=== PATIENT | male | born 1955 | race Caucasian/White ===

== ENCOUNTER 2016-11-08 09:09 | Observation (INO) | payer BC ==
[2016-11-08 09:41] LABS: Hematocrit 43 % (42-52); Hemoglobin 14.8 g/dl (14.0-18.0); Mean Corpuscular HGB Conc 34 g/dl (31-36); Mean Corpuscular Hemoglobin 30 pg (27-31); Mean Corpuscular Volume 88 fL (80-94); Mean Platelet Volume 8 um3 (7.4-10.4); Red Cell Distribution Width 13 % (10.5-15)
[2016-11-08 09:59] LABS: Troponin I 0.01 ng/mL (<0.04)
[2016-11-08 10:01] LABS: Albumin 4.1 g/dL (3.2-5.2); BUN/Creatinine Ratio 19.6 (8-20); Calcium 9.2 mg/dL (8.6-10.3); EGFR African American 107.9 (>60); EGFR Non-African American 83.9 (>60); Globulin 2.6 g/dL (2-4); Total Bilirubin 0.4 mg/dL (0.2-1.0); Total Protein 6.7 g/dL (6.4-8.9)
[2016-11-08 10:34] LABS: TSH (Thyroid Stimulating Horm) 1.81 mcIU/mL (0.34-5.60)
--- NOTE | 2016-11-08 10:41 | ED ---
Colette Camp SooYoung, scribed for Abdoulaye Gonzales MD on 11/08/16 at 0915 . 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 Pt was driving to work when he suddenly felt dizzy and pulled over. Dizziness described as lightheadedness and room-spinning. Associated sx: nausea/dry heaving, heavy breathing, fast palpitations. Pt states his vision seems a little "fuzzy." Pt had his usual large cup of coffee this AM. Per EMS, Zofran during ambulance ride seemed to gradually alleviate sx. - History Of Current Complaint Stated Complaint: DIZZINESS Hx Obtained From: Patient, EMS Onset/Duration: Still Present, Suddenly Timing: Constant Severity Initially: Moderate Severity Currently: Moderate Character: Room Spinning, Lightheaded, Dizzy Associated Signs And Symptoms: Positive: Nausea, Palpitations, Visual Changes - Allergies/Home Medications Allergies/Adverse Reactions: Allergies Allergy/AdvReac Type Severity Reaction Status Date / Time Penicillins [PCN] Allergy Unknown Verified 11/08/16 09:15 Reaction Details PMH/Surg Hx/FS Hx/Imm Hx Previously Healthy: Yes Sensory History: Denies: Hx Legally Blind Opthamlomology History: Denies: Hx Legally Blind Review of Systems Positive: Other - pos: vision changes "fuzzy" Positive: Palpitations Positive: Other - pos: "heavy breathing" Positive: Nausea Neurological: Other - POS: DIZZY All Other Systems Reviewed And Are Negative: Yes Physical Exam Triage Information Reviewed: Yes Vital Signs On Initial Exam: Initial Vitals Temp Pulse Resp BP Pulse Ox 99.2 F 73 14 161/90 95 11/08/16 09:14 11/08/16 09:14 11/08/16 09:14 11/08/16 09:14 11/08/16 09:14 Vital Signs Reviewed: Yes Appearance: Positive: Well-Appearing, No Pain Distress Skin: Positive: Warm, Skin Color Reflects Adequate Perfusion, Dry Head/Face: Positive: Normal Head/Face Inspection Eyes: Positive: Other: - POS: NYSTAGMUS WITH A FAST COMPONENT TO THE R THAT FATIGUED. ENT: Positive: Normal ENT inspection Neck: Positive: Supple, Nontender Respiratory/Lung Sounds: Positive: Clear to Auscultation, Breath Sounds Present Cardiovascular: Positive: RRR Abdomen Description: Positive: Nontender, Soft Bowel Sounds: Positive: Present Musculoskeletal: Positive: Normal Neurological: Positive: Normal Psychiatric: Positive: Normal, Affect/Mood Appropriate Diagnostics - Vital Signs Vital Signs Temp Pulse Resp BP Pulse Ox 11/08/16 09:14 99.2 F 73 14 161/90 95 - Laboratory Lab Results: Lab Results 11/08/16 11/08/16 11/08/16 Range/Units 09:35 09:35 09:35 WBC 10.0 (3.5-10.8) 10^3/ul RBC 4.90 (4.0-5.4) 10^6/ul Hgb 14.8 (14.0-18.0) g/dl Hct 43 (42-52) % MCV 88 (80-94) fL MCH 30 (27-31) pg MCHC 34 (31-36) g/dl RDW 13 (10.5-15) % Plt Count 242 (150-450) 10^3/ul MPV 8 (7.4-10.4) um3 Neut % (Auto) 67.3 (38-83) % Lymph % (Auto) 20.9 L (25-47) % [place] % (Auto) 9.7 H (1-9) % Eos % (Auto) 0.8 (0-6) % Baso % (Auto) 1.3 (0-2) % Absolute Neuts (auto) 6.7 (1.5-7.7) 10^3/ul Absolute Lymphs (auto) 2.1 (1.0-4.8) 10^3/ul Absolute Monos (auto) 1.0 H (0-0.8) 10^3/ul Absolute Eos (auto) 0.1 (0-0.6) 10^3/ul Absolute Basos (auto) 0.1 (0-0.2) 10^3/ul Absolute Nucleated RBC 0 10^3/ul Nucleated RBC % 0 INR (Anticoag Therapy) (0.89-1.11) Sodium 136 (133-145) mmol/L Potassium 4.0 (3.5-5.0) mmol/L Chloride 107 (101-111) mmol/L Carbon Dioxide 23 (22-32) mmol/L Anion Gap 6 (2-11) mmol/L BUN 18 (6-24) mg/dL Creatinine 0.92 (0.67-1.17) mg/dL Est GFR ( Amer) 107.9 (>60) Est GFR (Non-Af Amer) 83.9 (>60) BUN/Creatinine Ratio 19.6 (8-20) Glucose 117 H (70-100) mg/dL Lactic Acid 1.4 (0.5-2.0) mmol/L Calcium 9.2 (8.6-10.3) mg/dL Magnesium 2.0 (1.9-2.7) mg/dL Total Bilirubin 0.40 (0.2-1.0) mg/dL AST 14 (13-39) U/L ALT 16 (7-52) U/L Alkaline Phosphatase 54 (34-104) U/L Troponin I 0.01 (<0.04) ng/mL Total Protein 6.7 (6.4-8.9) g/dL Albumin 4.1 (3.2-5.2) g/dL Globulin 2.6 (2-4) g/dL Albumin/Globulin Ratio 1.6 (1-3) TSH Pending 11/08/16 Range/Units 09:35 WBC (3.5-10.8) 10^3/ul RBC (4.0-5.4) 10^6/ul Hgb (14.0-18.0) g/dl Hct (42-52) % MCV (80-94) fL MCH (27-31) pg MCHC (31-36) g/dl RDW (10.5-15) % Plt Count (150-450) 10^3/ul MPV (7.4-10.4) um3 Neut % (Auto) (38-83) % Lymph % (Auto) (25-47) % [place] % (Auto) (1-9) % Eos % (Auto) (0-6) % Baso % (Auto) (0-2) % Absolute Neuts (auto) (1.5-7.7) 10^3/ul Absolute Lymphs (auto) (1.0-4.8) 10^3/ul Absolute Monos (auto) (0-0.8) 10^3/ul Absolute Eos (auto) (0-0.6) 10^3/ul Absolute Basos (auto) (0-0.2) 10^3/ul Absolute Nucleated RBC 10^3/ul Nucleated RBC % INR (Anticoag Therapy) 0.81 L (0.89-1.11) Sodium (133-145) mmol/L Potassium (3.5-5.0) mmol/L Chloride (101-111) mmol/L Carbon Dioxide (22-32) mmol/L Anion Gap (2-11) mmol/L BUN (6-24) mg/dL Creatinine (0.67-1.17) mg/dL Est GFR ( Amer) (>60) Est GFR (Non-Af Amer) (>60) BUN/Creatinine Ratio (8-20) Glucose (70-100) mg/dL Lactic Acid (0.5-2.0) mmol/L Calcium (8.6-10.3) mg/dL Magnesium (1.9-2.7) mg/dL Total Bilirubin (0.2-1.0) mg/dL AST (13-39) U/L ALT (7-52) U/L Alkaline Phosphatase (34-104) U/L Troponin I (<0.04) ng/mL Total Protein (6.4-8.9) g/dL Albumin (3.2-5.2) g/dL Globulin (2-4) g/dL Albumin/Globulin Ratio (1-3) TSH Result Diagrams: 11/08/16 09:35 11/08/16 09:35 Lab Statement: Any lab studies that have been ordered have been reviewed, and results considered in the medical decision making process. - EKG 1 EKG Rhythm: Sinus Rhythm Ectopy: PVCs Dizzy Course/Dx - Course Course Of Treatment: Mr. Perkins presented after a near syncopal episode while driving. He felt 'lightheaded', 'the world was moving' and his heart was ' racing'. It came on suddenly and he pulled over and called EMS. He gradually began to improve. EMS found him in bigeminy and he presents with frequent PVC' s. His W/U is fine here and his exam normal aside from some mild nystagmus that fatigues. I am concerned for a dysrythmia and he will be admitted to the hospitalist service. - Diagnoses Provider Diagnoses: Near syncope - Critical Care Time Critical Care Time: 30-74 min Discharge - Discharge Plan Condition: Stable Disposition: ADMITTED TO [facility] The documentation as recorded by the Colette pizarro SooYoung accurately reflects the service I personally performed and the decisions made by me, Abdoulaye Gonzales MD.
[2016-11-08] MEDS ORDERED: NS 0.9% 1000 ML* 1,000 ML IV ONE (11:17)
[2016-11-08] MEDS ORDERED: Enoxaparin(*) 40 MG/0.4 ML SYR SUBCUT SCH (12:00)
--- NOTE | 2016-11-08 13:07 | HP ---
HISTORY AND PHYSICAL: DATE OF ADMISSION: 11/08/16 CHIEF COMPLAINT: Palpitations, presyncope. HISTORY OF PRESENT ILLNESS: Mr. Perkins is a 61-year-old man with known past medical history aside from some intermittent cold sores who presents to the hospital with dizziness and palpitations. The patient states that he has felt in his usual state of health, woke up this morning in [facility] he lived and was driving into [place] for the work week, which he usually does. He stopped to get a 16-ounce coffee with creamer as he usually does on the way to work as well. As he was [place] [address], he suddenly felt very dizzy and had sudden onset of palpitations. He says that the dizzi ness felt like a combination of lightheadedness and sensation that the things were spinning around h im. He immediately pulled over to the side of the road. He also experienced some nausea and was dr remy rose, some mild shortness of breath as well. No chest pain. He called EMS. His symptoms were still persistent when EMS arrived. He states that his blood pressure was found to be 200/100 initi ally and he was told he was having bigemini on monitor with EMS. He was brought to the hospital, sy mptoms persisted until about the time he came here. He thinks it was about an hour altogether. He states he still feels a bit nauseous and a bit dizzy at times. He states that looking occasionally at the curtain, it will seem like it is moving. He was noted to have some nystagmus on exam by Dr. Gonzales. The patient denies any recent fevers, chills, diarrhea or constipation. No recent illnesses . PAST MEDICAL HISTORY: Significant for cold sores. PAST SURGICAL HISTORY: Colon surgery. HOME MEDICATIONS: Recently started acyclovir 200 mg 5 times daily for cold sore. ALLERGIES: Reports allergy to PENICILLIN. FAMILY HISTORY: Significant for mother with diverticulitis, brother with a gallbladder cancer. SOCIAL HISTORY: Significant for three-quarter pack per day smoking history x30 years. The patient reports he will drink 4 to 5 drinks every 3 or 4 days during the week. Did not have any alcohol las t night. Denies any illicit drug use. REVIEW OF SYSTEMS: A 12-point review of systems is negative except for that as noted in the HPI. PHYSICAL EXAMINATION GENERAL: The patient is a pleasant middle-aged man lying in bed, in no apparent distress. VITAL SIGNS: On admission, temperature 99.2, heart rate 73, respiratory rate 14, O2 saturation 95% on room air, blood pressure 161/90. HEENT: Head: Normocephalic, atraumatic. Eyes: Pupils are equal, round and reactive to light and accommodation. Anicteric sclerae. ENT: Moist mucous membranes. No cervical adenopathy. LUNGS: Clear to auscultation bilaterally. No wheezes, rales or rhonchi. CARDIOVASCULAR: Regular rate and rhythm. S1, S2 present. No murmurs, gallops or rubs. ABDOMEN: Soft, nontender, nondistended. Bowel sounds positive. EXTREMITIES: No cyanosis, clubbing or edema. NEUROLOGIC: The patient is alert and oriented x3. No focal neurological deficits. Unable to elicit nystagmus on exam. [place]-Hallpike maneuver negative on both sides. DIAGNOSTIC STUDIES/LABORATORY DATA: White blood cell count of 10, hematocrit of 43, platelets 242, 000. INR 0.81. Sodium 136, potassium 4.0, chloride of 107, carbon dioxide of 23, BUN of 18, creati nine of 0.92, glucose of 117, lactic acid 1.4. LFTs within normal limits. Troponin of 0.01. TSH o f 1.81. EKG per review shows normal sinus rhythm with occasional PVC. ASSESSMENT AND PLAN: Palpitations and dizziness in a 61-year-old man with no past medical history. 1. Dizziness and lightheadedness. Some of the patient's symptoms seem more consistent with possibl e vertigo. We will check orthostatics. We will write for some p.r.n. meclizine. We will monitor t he patient on telemetry. These symptoms could possibly have been due to an arrhythmia. 2. Palpitations, treatment as above. We will monitor on telemetry. Trend the patient's troponins. He was noted to have some PVCs on EKG. We will see if these become frequent or if we see any othe r arrhythmias. 3. DVT prophylaxis. Lovenox subcu. 4. Code status. The patient is a full code. TIME SPENT: Total time spent on this admission, 45 minutes, with over half the time spent face-to-f remi with the patient in counseling and coordinating care. [id number]/[facility] #: [id number]
[2016-11-08] MEDS: Acyclovir* 200 MG CAP PO SCH ×3 (13:15→22:08)
[2016-11-08] MEDS: Meclizine TAB* 12.5 MG PO SCH ×2 (14:05→22:09)
[2016-11-08] MEDS ORDERED: Ondansetron INJ* 2 MG/ML VIAL IV PRN (18:23)
[2016-11-08 20:09] LABS: Urine Bilirubin Negative (Negative); Urine Glucose Negative (Negative); Urine Nitrite Negative (Negative)
[2016-11-09] MEDS: Acyclovir* 200 MG CAP PO SCH ×2 (03:19→08:43)
[2016-11-09] MEDS: Meclizine TAB* 12.5 MG PO SCH (05:22)
--- NOTE | 2016-11-09 07:55 | DCNOTE ---
Patient seen this morning. No issues overnight. Slept well. Ambulated around the unit last night with no issue. No recurrent dizziness, no palpitations. No N /V On exam, RRR, s1 and s2 present, no m/g/r, lungs CTA B/L, no w/r/r, abd soft, NTND, BS+, no LE edema No events on tele other than occasional PVCs Will discharge home with prn Meclizine for presumed vertigo. F/U with PCP.
[2016-11-09 10:03] VITALS: BP 139/82
--- NOTE | 2016-11-09 14:36 | DS ---
DISCHARGE SUMMARY: DATE OF ADMISSION: 11/08/16 DATE OF DISCHARGE: 11/09/16 PRINCIPAL DISCHARGE DIAGNOSIS: Vertigo. DISCHARGE MEDICATION REGIMEN: 1. Meclizine 12.5 mg by mouth every 8 hours as needed for dizziness. 2. Acyclovir 200 mg by mouth 5 times daily. HISTORY OF PRESENT ILLNESS AND HOSPITAL SUMMARY: Please see the full history and physical done by philip avila for full details. Briefly, Mr. Perkins is a healthy 61-year- old man, who presented to the hospit al after experiencing dizziness and palpitations while driving into [place]. The patient states he h ad a combination of lightheadedness and sensation of things were spinning around him. EMS was wallace d. He was noted to have bigeminy and PVCs on the monitor initially and PVCs here in the hospital on arrival. The ED physician did note some nystagmus on exam initially, which seemed to have improved by the time I evaluated the patient; however, he did say that even looking at the curtain in his subhash rgency room, it appeared as if it was moving. It was felt the patient likely had a vertigo. He was stated on meclizine and overnight here and no recurrence of his symptoms. He was ambulating around the unit with no issues. He was monitored on telemetry and aside from occasional PVC, no concerning arrhythmias were noted. The patient will be discharged home on p.r.n. meclizine and follow up with his PCP as an outpatient. TIME SPENT: Total time spent on this discharge was 35 minutes. This is a summary of the [facility], please see the full medical record for further details. [id number]/[facility] #: [id number]
== END 2016-11-09 09:55 | disposition home or self-care (01) ==
LOC: ED 09:09 → MEDTELE 10:31
PROVIDERS: ADMIT Hospitalist; ATTEND Hospitalist
DX: R42 Dizziness and giddiness (principal); R00.2 Palpitations; I49.3 Ventricular premature depolarization; R00.8 Other abnormalities of heart beat; R06.02 Shortness of breath; R55 Syncope and collapse; H55.00 Unspecified nystagmus; F17.210 Nicotine dependence, cigarettes, uncomplicated; R11.0 Nausea
CPT/HCPCS: 36415; 80053; 81003; 83605; 83735; 84443; 84484; 85025; 85610; 93005; 96360; 96361; 96372; 99291; A9270-GY; G0378; J1650